=== PATIENT | male | born 1940 | race Caucasian/White ===

== ENCOUNTER 2018-09-07 15:15 | Observation (INO) | payer OTHER ==
--- NOTE | 2018-09-07 16:00 | EDPHY ---
H & P Stated Complaint: lumbar back pain since last tuesday Time Seen by Provider: 09/07/18 15:52 HPI/ROS: CHIEF COMPLAINT: Increasing back pain HISTORY OF PRESENT ILLNESS: The patient presents to the ED with several weeks of increasing severe back pain. The patient did have a fall approximately a month ago. The patient was seen in outpatient orthopedic facility today where plain films were obtained which seemed to demonstrate the possibility of metastatic disease. The patient reports a history of prior prostate cancer. He is status post prostatectomy. The patient denies any acute lower extremity numbness or weakness. The patient has been taking Percocet at home which she had left over from a dental procedure without improvement of his symptoms. REVIEW OF SYSTEMS: A comprehensive 10 point review of systems is otherwise negative aside from elements mentioned in the history of present illness. Source: Patient Exam Limitations: No limitations - Personal History Current Tetanus/Diphtheria Vaccine: Unsure Current Tetanus Diphtheria and Acellular Pertussis (TDAP): Unsure Tetanus Vaccine Date: < 10 years - Medical/Surgical History Hx Asthma: No Hx Chronic Respiratory Disease: No Hx Diabetes: No Hx Cardiac Disease: No Hx Renal Disease: No Hx Cirrhosis: No Hx Alcoholism: No Hx HIV/AIDS: No Hx Splenectomy or Spleen Trauma: No Other PMH: prostate CA, hyperlipdemia, PTSD, DVT, depression - Social History Smoking Status: Never smoked - Physical Exam Exam: General Appearance: Alert, no distress Eyes: Pupils equal and round no pallor or injection ENT, Mouth: Mucous membranes moist Respiratory: There are no retractions, lungs are clear to auscultation Cardiovascular: Regular rate and rhythm Gastrointestinal: Abdomen is soft and nontender, no masses, bowel sounds normal Neurological: 5/5 strength noted all 4 extremities, reflexes intact, sensation intact to light touch Skin: Warm and dry, no rashes Musculoskeletal: Tenderness to palpation noted throughout the lower thoracic and mid lumbar spine Extremities: symmetrical, full range of motion Constitutional: Initial Vital Signs Temperature (C) 37 C 09/07/18 15:28 Heart Rate 98 09/07/18 15:28 Respiratory Rate 19 09/07/18 15:28 Blood Pressure 145/99 H 09/07/18 15:28 O2 Sat (%) 96 09/07/18 15:28 O2 Delivery Mode Room Air Allergies/Adverse Reactions: No Known Allergies Allergy (Unverified 03/15/14 15:10) Home Medications: Medication Instructions Recorded Coumadin 5MG (RX) 03/15/14 Zoloft 25mg (RX) 03/15/14 traZODONE 03/15/14 Aspirin 81mg (*) 05/18/16 CALCIUM 05/18/16 Glucosamine 05/18/16 Multivitamin 05/18/16 Pravastatin Sodium 40 mg PO 05/18/16 Ranitidine HCl 05/18/16 Vitamin C 05/18/16 Medical Decision Making - Diagnostics Imaging Results: Imaging Impressions Thoracic Spine CT 09/07/18 15:53 Impression: 1. Chronic superior compression of T4. There is however new compression of the superior endplate of T5 since 2004. 2. Possible minimally displaced fracture of the inferior endplate T12. 3. Significant sclerotic changes predominantly at L3-L4 with cortical irregularity along the anterior margin of L4. Findings are likely degenerative. There may be a component of spinal canal stenosis at this level. 4. Sclerotic focus of the posterior right sixth rib is nonspecific but likely represents a bone island. Recommend MRI of the thoracic and lumbar spine. Findings and recommendations discussed with Chi Mcallister at 1701 hour, 2018. Lumbar Spine CT 09/07/18 15:54 Impression: 1. Chronic superior compression of T4. There is however new compression of the superior endplate of T5 since 2004. 2. Possible minimally displaced fracture of the inferior endplate T12. 3. Significant sclerotic changes predominantly at L3-L4 with cortical irregularity along the anterior margin of L4. Findings are likely degenerative. There may be a component of spinal canal stenosis at this level. 4. Sclerotic focus of the posterior right sixth rib is nonspecific but likely represents a bone island. Recommend MRI of the thoracic and lumbar spine. Findings and recommendations discussed with Chi Mcallister at 1701 hour, 2018. ED Course/Re-evaluation: Patient presents the ED with intractable back pain. He has no acute lower extremity neurologic complaints. The patient was taken for CT scan of the thoracolumbar spine which demonstrated age-indeterminate compression deformities , DJD in the possibility of a abnormal lesion noted at L 3/4 The patient was taken for an MRI which demonstrates an acute compression fracture at T12. There is no evidence of an additional acute injury or metastatic lesion present. The patient received several doses of IV Dilaudid for pain control. Re-evaluated the patient again at 7:50 p.m. He continues to complain of 8/10 pain. Plan will be for admission to the hospital. Consulted with Neurosurgery. Will order a Jewitt Brace. Admission to hospitalist service for pain control. Consultation is made with Dr. Sims who will admit the patient. I spoke with Neurosurgery. Dr. Smith will consult on the patient. I have ordered a Jewitt Brace through [facility] orthopedics Differential Diagnosis: Differential diagnosis considered includes compression fracture, spinal cord injury, pathologic fracture, abdominal aortic aneurysm, myofascial strain - Data Points Laboratory Results: Laboratory Results 09/07/18 16:00 09/07/18 16:00 09/07/18 09/07/18 09/07/18 16:00 16:00 16:00 WBC 9.14 10^3/uL 10^3/uL (3.80-9.50) RBC 5.27 10^6/uL 10^6/uL (4.40-6.38) Hgb 16.3 g/dL g/dL (13.7-17.5) Hct 49.1 % % (40.0-51.0) MCV 93.2 fL fL (81.5-99.8) MCH 30.9 pg pg (27.9-34.1) MCHC 33.2 g/dL g/dL (32.4-36.7) RDW 13.0 % % (11.5-15.2) Plt Count 207 10^3/uL 10^3/uL (150-400) MPV 8.2 fL L fL (8.7-11.7) Neut % (Auto) 69.8 % % (39.3-74.2) Lymph % (Auto) 20.2 % % (15.0-45.0) [place] % (Auto) 7.2 % % (4.5-13.0) Eos % (Auto) 2.0 % % (0.6-7.6) Baso % (Auto) 0.5 % % (0.3-1.7) Nucleat RBC Rel Count 0.0 % % (0.0-0.2) Absolute Neuts (auto) 6.37 10^3/uL 10^3/uL (1.70-6.50) Absolute Lymphs (auto) 1.85 10^3/uL 10^3/uL (1.00-3.00) Absolute Monos (auto) 0.66 10^3/uL 10^3/uL (0.30-0.80) Absolute Eos (auto) 0.18 10^3/uL 10^3/uL (0.03-0.40) Absolute Basos (auto) 0.05 10^3/uL 10^3/uL (0.02-0.10) Absolute Nucleated RBC 0.00 10^3/uL 10^3/uL (0-0.01) Immature Gran % 0.3 % % (0.0-1.1) Immature Gran # 0.03 10^3/uL 10^3/uL (0.00-0.10) PT 19.5 SEC H SEC (12.0-15.0) INR 1.74 H (0.83-1.16) Sodium 139 mEq/L mEq/L (135-145) Potassium 4.2 mEq/L mEq/L (3.5-5.2) Chloride 109 mEq/L mEq/L (97-110) Carbon Dioxide 20 mEq/l L mEq/l (22-31) Anion Gap 10 mEq/L mEq/L (6-14) BUN 22 mg/dL mg/dL (7-23) Creatinine 1.0 mg/dL mg/dL (0.7-1.3) Estimated GFR > 60 Glucose 104 mg/dL H mg/dL (70-100) Calcium 9.3 mg/dL mg/dL (8.5-10.4) Medications Given: Discontinued Medications Hydromorphone HCl (Dilaudid) 1 mg IVP EDNOW ONE Stop: 09/07/18 16:17 Last Admin: 09/07/18 16:36 Dose: 1 mg Hydromorphone HCl (Dilaudid) 1 mg IVP EDNOW ONE Stop: 09/07/18 19:41 Last Admin: 09/07/18 19:50 Dose: 1 mg Departure - Departure Disposition: [facility] Inpatient Acute Clinical Impression: Thoracic compression fracture Condition: Good Referrals: Carlos Ron MD [Primary Care Provider] - As per Instructions
[2018-09-07 16:08] LABS: PLATELET COUNT 207 10^3/uL (150-400)
[2018-09-07] MEDS ORDERED: HYDROmorphONE/DILAUDID 2 MG/ML INJ IVP ONE ×2 (16:16→19:40)
[2018-09-07 16:26] LABS: INR 1.74 (0.83-1.16); PROTIME(PATIENT) 19.5 SEC (12.0-15.0)
[2018-09-07] MEDS ORDERED: ONDANSETRON DISINTEGRATING 4 MG TAB PO PRN (20:33)
[2018-09-07] MEDS ORDERED: ACETAMINOPHEN 325 MG TAB PO PRN (20:33)
[2018-09-07] MEDS ORDERED: HYDROmorphONE/DILAUDID 1 MG/ML INJ IVP PRN (20:33)
[2018-09-07] MEDS ORDERED: HYDROCODONE/APAP 5/325 TAB PO PRN (20:33)
[2018-09-07] MEDS ORDERED: ONDANSETRON 4 MG/2 ML VIAL IVP PRN (20:33)
--- NOTE | 2018-09-07 22:21 | PDGENHP ---
History and Physical - Chief Complaint Back pain - History of Present Illness Jon Boles is a 78 yo M with a PMHx of Prostate cancer s/p prostatectomy in 1999, DVT/PE on Coumadin who presents to [facility] for back pain. He reports multiple mechanical falls towards the end of August due to walking his new dog in the ice/snow. He has been having increasing back pain since then. He had Percocet at home from a prior dental procedure which he was taking 2 tablets every 6 hours. He ran out of this medication yesterday with significant increase in pain. Pain in located in middle back, non-radiating, described as sharp, worse with movement and improved with rest. He denies any chest pain, SOB, d/c, f/c, weakness, numbness/tingling. History Information - Allergies/Home Medication List Allergies/Adverse Reactions: No Known Allergies Allergy (Unverified 09/07/18 21:53) Home Medications: Aspirin [Aspirin 81mg (*)] 81 mg PO HS 09/07/18 [Last Taken 09/06/18] Herbals/Supplements -Info Only 1 ea PO DAILY 09/07/18 [Last Taken 09/07/18] Multivitamins [Multivitamin (*)] 1 each PO DAILY 09/07/18 [Last Taken 09/07/18] Pravastatin Sodium 40 mg PO HS 09/07/18 [Last Taken 09/06/18] Sertraline HCl [Zoloft 100mg (*)] 100 mg PO BID 09/07/18 [Last Taken 09/07/18] Warfarin Sodium [Coumadin 5MG (*)] 2.5 mg PO MOWEFRSA@16 09/07/18 [Last Taken ] Warfarin Sodium [Coumadin 5MG (*)] 5 mg PO SUTUTH@16 09/07/18 [Last Taken ] I have personally reviewed and updated: family history, medical history, social history, surgical history - Past Medical History cancer, DVT, pulmonary embolism - Surgical History Reports: cancer surgery - Family History Positive for: non-pertinent - Social History Smoking Status: Never smoked Review of Systems Review of Systems: ROS: 10pt was reviewed & negative except for what was stated in HPI & below Physical Exam Physical Exam: Temp Pulse Resp BP Pulse Ox 36.8 C 77 16 149/79 H 94 09/07/18 21:46 09/07/18 21:46 09/07/18 21:46 09/07/18 21:46 09/07/18 21:46 Constitutional: uncomfortable Eyes: PERRL Ears, Nose, Mouth, Throat: moist mucous membranes Cardiovascular: regular rate and rhythym Respiratory: no respiratory distress Gastrointestinal: soft, non-tender abdomen Skin: warm Musculoskeletal: pain with ROM Neurologic: AAOx3 Psychiatric: interacting appropriately Lab Data & Imaging Review 09/07/18 16:00 09/07/18 16:00 WBC 9.14 10^3/uL (3.80-9.50) 09/07/18 16:00 RBC 5.27 10^6/uL (4.40-6.38) 09/07/18 16:00 Hgb 16.3 g/dL (13.7-17.5) 09/07/18 16:00 Hct 49.1 % (40.0-51.0) 09/07/18 16:00 MCV 93.2 fL (81.5-99.8) 09/07/18 16:00 MCH 30.9 pg (27.9-34.1) 09/07/18 16:00 MCHC 33.2 g/dL (32.4-36.7) 09/07/18 16:00 RDW 13.0 % (11.5-15.2) 09/07/18 16:00 Plt Count 207 10^3/uL (150-400) 09/07/18 16:00 MPV 8.2 fL (8.7-11.7) L 09/07/18 16:00 Neut % (Auto) 69.8 % (39.3-74.2) 09/07/18 16:00 Lymph % (Auto) 20.2 % (15.0-45.0) 09/07/18 16:00 [place] % (Auto) 7.2 % (4.5-13.0) 09/07/18 16:00 Eos % (Auto) 2.0 % (0.6-7.6) 09/07/18 16:00 Baso % (Auto) 0.5 % (0.3-1.7) 09/07/18 16:00 Nucleat RBC Rel Count 0.0 % (0.0-0.2) 09/07/18 16:00 Absolute Neuts (auto) 6.37 10^3/uL (1.70-6.50) 09/07/18 16:00 Absolute Lymphs (auto) 1.85 10^3/uL (1.00-3.00) 09/07/18 16:00 Absolute Monos (auto) 0.66 10^3/uL (0.30-0.80) 09/07/18 16:00 Absolute Eos (auto) 0.18 10^3/uL (0.03-0.40) 09/07/18 16:00 Absolute Basos (auto) 0.05 10^3/uL (0.02-0.10) 09/07/18 16:00 Absolute Nucleated RBC 0.00 10^3/uL (0-0.01) 09/07/18 16:00 Immature Gran % 0.3 % (0.0-1.1) 09/07/18 16:00 Immature Gran # 0.03 10^3/uL (0.00-0.10) 09/07/18 16:00 PT 19.5 SEC (12.0-15.0) H 09/07/18 16:00 INR 1.74 (0.83-1.16) H 09/07/18 16:00 Sodium 139 mEq/L (135-145) 09/07/18 16:00 Potassium 4.2 mEq/L (3.5-5.2) 09/07/18 16:00 Chloride 109 mEq/L (97-110) 09/07/18 16:00 Carbon Dioxide 20 mEq/l (22-31) L 09/07/18 16:00 Anion Gap 10 mEq/L (6-14) 09/07/18 16:00 BUN 22 mg/dL (7-23) 09/07/18 16:00 Creatinine 1.0 mg/dL (0.7-1.3) 09/07/18 16:00 Estimated GFR > 60 09/07/18 16:00 Glucose 104 mg/dL (70-100) H 09/07/18 16:00 Calcium 9.3 mg/dL (8.5-10.4) 09/07/18 16:00 Assessment & Plan Assessment: Thoracic compression fracture (Acute) - Seen on MRI at T12 - Neurosurgery consulted in the ED, no surgical intervention recommended at this time, will place brace in the AM - Pain management PRN - PT/OT ordered NELIDA - CPAP overnight with 2L NC Prostate Cancer - Reports prostatectomy in 1999 - No concerning metastatic lesions on imaging done today 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
[2018-09-08] MEDS ORDERED: PRAVASTATIN SODIUM 40 MG TAB PO SCH (01:15)
[2018-09-08] MEDS: SERTRALINE HCL 100 MG TAB PO SCH ×2 (02:45→07:52)
[2018-09-08] MEDS ORDERED: BISACODYL 10 MG SUPP PR PRN (08:30)
[2018-09-08] MEDS ORDERED: LACTULOSE 20 GM/30 ML UDCUP PO PRN (08:30)
[2018-09-08] MEDS ORDERED: MAGNESIUM HYDROXIDE 30 ML UDCUP PO PRN (08:30)
--- NOTE | 2018-09-08 08:36 | HOSPPROG ---
Hospitalist Progress Note Assessment/Plan: Jon Boles is a 78 yo M with a PMHx of Prostate cancer s/p prostatectomy in 1999, DVT/PE on Coumadin who presents to [facility] for back pain. He reports multiple mechanical falls towards the end of August due to walking his new dog in the ice/snow. He has been having increasing back pain since then. First encounter , chart reviewed. *T12 compression fx -evaluated by neurosurgical team-trial of brace -PT and OT -pain management *NELIDA -CPAP w 2 liters of O2 *prostate ca -s/p prostatectomy in 1999 -no evidence of recurrent ca on imaging *DVT/PE -on oral anticoagulation (subtherapeutic) *plan: PT and OT to see, will see how he does Subjective: Jon is feeling comfortable while in bed. Objective: Vital Signs Temp Pulse Resp BP Pulse Ox 36.8 C 74 18 146/96 H 94 09/08/18 07:24 09/08/18 07:24 09/08/18 07:24 09/08/18 07:24 09/08/18 07:24 09/07/18 09/08/18 09/09/18 05:59 05:59 05:59 Intake Total 600 Balance 600 PT 19.5 SEC (12.0-15.0) H 09/07/18 16:00 INR 1.74 (0.83-1.16) H 09/07/18 16:00 - Physical Exam Constitutional: no apparent distress, appears nourished Eyes: PERRL Ears, Nose, Mouth, Throat: hearing normal Cardiovascular: regular rate and rhythym Respiratory: no respiratory distress Gastrointestinal: soft, non-tender abdomen Skin: warm Neurologic: AAOx3 Psychiatric: interacting appropriately ICD10 Worksheet Patient Problems: Problems Problem Status Onset Thoracic compression fracture Acute
[2018-09-08] MEDS ORDERED: MULTIVITAMINS 1 EACH TAB PO SCH (09:00)
[2018-09-08] MEDS ORDERED: POLYETHYLENE GLYCOL 3350 17 GM PKT PO SCH (09:00)
[2018-09-08] MEDS ORDERED: SENNOSIDES/DOCUSATE SODIUM TAB PO SCH (09:00)
[2018-09-08] MEDS ORDERED: ENOXAPARIN 40 MG/0.4 ML SYR SC SCH (09:00)
[2018-09-08] MEDS ORDERED: Herbals/Supplements -Info Only PO SCH (09:00)
[2018-09-08] MEDS: METHOCARBAMOL 750 MG TAB PO PRN ×2 (09:46→15:54)
--- NOTE | 2018-09-08 10:53 | GCON ---
[f rep st] CONSULTATION DATE OF CONSULTATION: 09/08/2018 REASON FOR CONSULTATION: T12 compression fracture with history of prostate cancer and intractable back pain. HISTORY OF PRESENT ILLNESS: The patient is a very pleasant, 78-year-old gentleman with a history of prostate cancer status post prostatectomy in 1999, who is also on anticoagulation for DVTs, PEs, and a stent who reports multiple mechanical falls in the last several weeks. He states that on September 04, he was walking his dog in the ice and snow when he slipped. His feet went out from underneath him. He landed on his buttocks fairly hard. He developed acute worsening low back pain without any radicular symptoms. Patient's pain continued to worsen despite utilization of Percocet at home. He ran out of his medication at home and therefore came to [facility] for further evaluation and management. The patient was admitted after being discovered to have a T12 compression deformity on his imaging studies. A neurosurgical consultation was requested for assistance and management. Patient this morning states that his pain is better controlled. The pain is focal to the thoracolumbar space without radiation into the lower extremities. He denies any tingling, numbness, pain, or weakness into the upper or lower extremities. He does have history of ongoing back pain for which he has undergone prior injections with Dr. Libby Walker 2 years of pain management here in [place]. The patient does live in a [place], but prefers to get his care in [place]. No loss of bowel or bladder function. ALLERGIES: No known drug allergies. MEDICATIONS: Prior to admission: 1. Aspirin 81 mg p.o. q.h.s. 2. Herbal supplements p.o. daily. 3. Multivitamin 1 p.o. daily. 4. Pravastatin sodium 40 mg p.o. q.h.s. 5. Zoloft 100 mg p.o. b.i.d. 6. Coumadin 2.5, alternating with 5 mg daily. PAST MEDICAL HISTORY: 1. Prostate cancer, status post prostatectomy. 2. DVTs and PEs. 3. Coronary artery disease. PAST SURGICAL HISTORY: 1. History of prostatectomy. 2. Cardiac stent. FAMILY HISTORY: Negative for any compression deformities or neurological disorders. SOCIAL HISTORY: Patient denies any tobacco utilization. REVIEW OF SYSTEMS: Complete 10-point review of systems from the patient intake form reviewed by myself, significant only for those noted above in the HPI. PHYSICAL EXAMINATION: VITAL SIGNS: Blood pressure is 158/90, heart rate is 64 , respiratory rate is 18, saturating 97% on room air, temperature is 36.9. GENERAL: The patient is lying in the bed in no acute distress. He is quite pleasant and cooperative to examination. His dcnxxjkz-tj-zea is at the bedside. Mentation is appropriate. HEENT: Head is atraumatic, normocephalic. Pupils are equal, round, and reactive to light bilaterally. NEUROLOGIC: Cranial nerves 2 through 12 are intact. His pupils are equal, round, and reactive to light bilaterally. Extraocular movements are intact. Tongue protrudes midline. Uvula and palate elevate symmetrically. He has intact sensation to light touch on his face bilaterally. He does wear hearing aids, but has intact hearing to light finger scratch. Shoulder shrug symmetric. Motor: 5/5 strength throughout, including bilateral hazardous material technician strength biceps triceps, deltoids, bilateral hip flexion, knee flexion and extension, bilateral plantar, dorsiflexion, extensor hallucis longus. Sensory is intact sensation to light touch throughout all major dermatomes of the bilateral upper and lower extremities throughout. Reflexes: He has 1+ reflexes of bilateral patella and brachial radialis. No Butler. No Babinski. Negative straight leg raise test. MEDICAL DECISION MAKING: Patient underwent A CT of the lumbar and thoracic spine, as well as an MRI of the lumbar and thoracic spine, which were all reviewed by myself on the [facility] PAC system . There is acute T12 inferior endplate fracture with less than 10% height loss. There is no retropulsed components or narrowing of the canal. The thoracic canal is widely patent. There is ytoivvkz-oo-scxrjb degenerative disk disease throughout the L2-3 through L5-S1 levels with moderate central canal narrowing, especially at L4-5 and severe bilateral foraminal narrowing. L3-4 and severe on the right at L4-5 L5-S1. White count is 9.14, platelets 207. INR is 1.74. Sodium 139, potassium 4.2, BUN of 12, creatinine 1.0. ASSESSMENT/PLAN: The patient is a very pleasant, 78-year-old gentleman, who is on aspirin and Coumadin for history of deep venous thrombosis, pulmonary embolisms, and a cardiac stent who has had a mechanical fall on the September, with ongoing focal back pain without radiculopathy. He has no neurological deficits and appears to be more comfortable this morning with pain medications. I reviewed the treatment options with the patient and his cfvzqrin-yq-mki, including nonoperative intervention with pain medications and a Emerald brace from [facility]. I reviewed with them that this would likely be required for 2 to 3 months as the fracture heals. The brace will need to be worn only when the patient is out of bed and upright and is not necessarily when he is less than 30 degrees or sleeping in bed. If the patient's pain is not managed well with the brace and utilization of pain medications, then he can also be considered for a T12 kyphoplasty; however, this would require reversal of his anticoagulation and place him at increased medical risk. They currently agree with the nonoperative intervention. A Emerald brace has been ordered from [facility]. Recommend having physical therapy/occupational therapy see the patient and get him ambulating, and likely can discharge home when pain is controlled. He will need follow up in 4 to 6 weeks as an outpatient with AP, lateral thoracal lumbar x-rays to evaluate the T12 fracture. The patient to follow up with myself or one of my partners at [place] if he prefers since he lives there. The patient and his byaepvvo-ve-xrr's questions were all answered , and they are both in agreement with this treatment plan. Thank you for this consultation. Please note, the patient was seen at 6 a.m. on the morning of the September. /[id number]/MODL MTDD
--- NOTE | 2018-09-08 15:19 | PDIAF ---
- Diagnosis Diagnosis: T 12 compression fx, hx of PE and DVT Code Status: Do Not Resuscitate - Medication Management Discharge Medications: electronically signed and located in the Home Medication List. - Orders Services needed: Home Care, Physical Therapy, Occupational Therapy Home Care Face to Face: I certify that this patient was under my care and that I had the required [id number] encounter meeting the encounter requirements on the discharge day. My findings support the fact that the patient is homebound as defined in Home Care Face to Face Continued: CMS Chapter 7 Medicare Benefits Manual 30.1.1 , The condition of the patient is such that there exists a normal inability to leave home and consequently, leaving home would require a considerable and taxing effort. Diet Recommendation: no restrictions on diet Diet Texture: Regular Texture Diet Additional Instructions: Wear brace at all time when out of bed. Follow up with Dr. Smith in 4-6 weeks with repeat thoracic/lumbar x-rays. No bending, twisting or lifting over 10 lbs x [address] Smith's office to schedule appt in 4 weeks. [phone]. A script for King will be given to you, this is a narcotic and causes constipation, take stool softener while on this, no drinking or driving while on this. Robaxin is a muscle relaxant, if your back has spasms; take this to help. Can cause dizziness, do not drink or drive while on this medication. Your INR is not therapeutic, talk to your PCP, may need higher dose of Coumadin , get INR checked early next week. prescriptions were sent to [facility] in [place] - Labs/Radiology PT/INR Date: 09/11/18 - Follow Up Care Current Providers and Referrals: Carlos Ron MD [Primary Care Provider] - As per Instructions
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
--- NOTE | 2018-09-08 15:33 | ASMTCMCOM ---
CM Note CM Note Notes: Patient is a 78 year old male who presented to [facility] ED post mechanical fall. Patient is eager to discharge, PT recommending home care. Spoke with pt and MATTI Yadav about HHC rec, pt declines HHC despite therapy recs and strong recommendation of Hospitalist Henry. Pt reports he has an outpatient PT he has worked with very close to his home he wants to go to. Pt is provided outpatient OT/PT script. Pt does have a PCP, he will contact PCP if he gets home and determines needs HHC. Pt has family and neighbor support. Date Signed: 09/08/2018 03:33 PM Electronically Signed By:CONNER Espinoza
[2018-09-08] MEDS ORDERED: WARFARIN SODIUM 5 MG TAB PO SCH (16:00)
--- NOTE | 2018-09-08 16:00 | GDS ---
[f rep st] DISCHARGE SUMMARY DISCHARGE DIAGNOSES: 1. Acute T12 compression fracture. 2. Obstructive sleep apnea. 3. Prostate cancer. 4. History of deep venous thrombosis and pulmonary emboli, on chronic oral anticoagulation. CONSULTATION: Cecil Smith MD. HISTORY OF PRESENT ILLNESS: Briefly, the patient is a 78-year-old male with a past medical history o f prostate cancer status post prostatectomy in 1999, DVT and PE on Coumadin. He presented the emerge ncy room for back pain. He has had multiple mechanical falls toward the end of August due to walki ng his new dog on the ice and snow. He has been having increased back pain. He was seen and evaluat ed by Neurosurgery. He had multiple imaging noted, and it was noted that he had a T12 fracture. He would like to do a trial of the brace. If he does not improve, he can consider getting a T12 kyphopl asty, but this would require holding his anticoagulation. Today, he is feeling markedly better. He will follow up with Dr. Smith in the outpatient setting and get followup x-rays. He will be dischar ged home. Please see his MRI imaging reports as noted here. Also recommendation was for the patient to receive home care. He has declined this at this time. HOSPITAL COURSE BY PROBLEM: 1. Acute T12 compression fracture: He is only taken 1 Readfield today. He is doing quite well and will go home today. 2. Obstructive sleep apnea: On CPAP at home. 3. Prostate cancer: He is status post a prostatectomy in 1999. He has no evidence of recurrent can cer on imaging. 4. History of DVT and PE: He is subtherapeutic. I told this to the patient. He needs to probably take a higher dose of Coumadin. DISCHARGE CONDITION: Stable. Blood pressure is 130/75, heart rate is 79, respiratory rate of 18, O2 sats are 94%, temperature of 36.9 Celsius. MEDICATIONS AT DISCHARGE: Please see the EMR. DISCHARGE INSTRUCTIONS: 1. Wear brace at all times when he is out of bed. 2. Follow up with Dr. Smith in 4 to 6 weeks with a repeat lumbar x-rays. 3. No bending, twisting, or lifting over 10 pounds for 6 weeks. 4. A script for Readfield and Robaxin will be sent to his pharmacy. As this causes constipation, take a stool softener while on this. No drinking or driving while on this medication. 5. His INR is subtherapeutic. He needs to get a recheck and follow up with his PCP. /[id number]/MODL
[2018-09-08 16:03] VITALS: BP 135/71
[2018-09-08] MEDS ORDERED: ASPIRIN 81 MG CHEWABLE TAB PO SCH (21:00)
[2018-09-10] MEDS ORDERED: WARFARIN SODIUM 5 MG TAB PO SCH (16:00)
== END 2018-09-08 16:05 | disposition home or self-care (01) ==
LOC: INTOOBSV 20:00 → F3N 21:40
PROVIDERS: ADMIT Internal Medicine; ATTEND Internal Medicine
DX: S22.080A Wedge compression fracture of T11-T12 vertebra, initial encounter for closed fracture (principal); W00.0XXA Fall on same level due to ice and snow, initial encounter; Y93.K1 Activity, walking an animal; Y92.9 Unspecified place or not applicable; M51.87 Other intervertebral disc disorders, lumbosacral region; G47.33 Obstructive sleep apnea (adult) (pediatric); I25.10 Atherosclerotic heart disease of native coronary artery without angina pectoris; Z95.5 Presence of coronary angioplasty implant and graft; Z85.46 Personal history of malignant neoplasm of prostate; Z86.711 Personal history of pulmonary embolism; Z86.718 Personal history of other venous thrombosis and embolism; Z79.01 Long term (current) use of anticoagulants
CPT/HCPCS: 72128; 72131; 72146; 72148; 97161; 97166; 97535; G0378; J1170; 96374